=== PATIENT | female | born 1990 | race African-American/Black ===

== ENCOUNTER 2017-07-06 22:41 | Emergency (ER) | payer OTHER ==
[~2017-07-06] VITALS: Ht 167.6 cm; Wt 117.9 kg
--- NOTE | ~2017-07-06 | EKG ---
[place] [address] [address] [place] [address] ELECTROCARDIOGRAM REPORT Name: ASTER HILLIARD Room #: DEP Imelda#: [id number] Admission: 07/06/17 Attend Phys: Discharge: 07/07/17 Date of : [birth year] Report #: [id number] THIS REPORT FOR: //name// [facility] ED Test Date: 2017-07-06 Test Time: 23:10:31 Pat Name: ASTER HILLIARD Department: Room: Gender: F [employer] Consultant: Fannie PITT : 1990 Requested By: Dai Vail Order Number: [id number] MD: Salvatore Casillas Measurements Intervals [place] Rate: 82 P: 75 OK: 174 QRS: 35 QRSD: 90 T: 34 QT: 370 QTc: 432 Interpretive Statements Sinus rhythm Baseline wander in lead(s) V2 Compared to ECG 11/18/2015 13:47:21 No significant changes Electronically Signed On 07-07-2017 9:07:40 CDT by Salvatore Casillas [email or web address] <ELECTRONICALLY SIGNED> By: Salvatore Casillas MD, [facility] 07/07/17 0907 2310 09 Salvatore Casillas MD, FACC /EPI
[~2017-07-06 22:41] MED LIST: ERYTHROMYCIN E3.5 G1 OPHTHALMIC; IBUPROFEN 600600 M1 PO; NAPROSYN500 MG PO; NORCO 5-325 TA1 EACH PO; PROVENTIL HFA6.7 G1 INH; TESSALON PERLE100 MG PO; ZPAK PO
[2017-07-07 00:19] LABS: ABSOLUTE NEUTROPHILS 7.9 thou/uL (1.4-8.2); BASOPHILS 0.8 % (0.0-2.0); EOSINOPHILS 0.5 % (0.0-3.0); HEMATOCRIT 35.2 % (37.0-47.0); HEMOGLOBIN 11.2 gm/dL (12.0-15.0); LYMPHOCYTES 17.9 % (24.0-44.0); MCH 22.3 pg (26.0-34.0); MCV 69.8 fL (80.0-100.0); MONOCYTES 7.6 % (1.0-8.0); PLATELET COUNT 353 thou/uL (150-400); POLYS 73.2 % (36.0-66.0); RBC 5.03 mil/uL (4.20-5.00); RDW 15.2 % (10.5-14.5); WBC 10.9 thou/uL (4.0-11.0)
[2017-07-07 00:21] LABS: MANUAL DIFF NO
[2017-07-07 00:23] LABS: ANION GAP 11 mmol/L (7-16); BUN 11 mg/dL (7-18); CHLORIDE 100 mmol/L (98-107); CO2 27 mmol/L (21-32); CREATININE 0.7 mg/dL (0.6-1.0); GLUCOSE 129 mg/dL (74-106); POTASSIUM 4.2 mmol/L (3.5-5.1); SODIUM 138 mmol/L (136-145)
[2017-07-07 00:29] LABS: ALBUMIN 3.6 g/dL (3.4-5.0); ALKALINE PHOSPHATASE 101 U/L (46-116); DIRECT BILIRUBIN < 0.1 mg/dL (<0.1-0.3); SGOT 13 U/L (15-37); SGPT 17 U/L (30-65); TOTAL BILIRUBIN 0.3 mg/dL (<0.1-1.0)
[2017-07-07 00:50] LABS: URINE BILIRUBIN NEGATIVE (Negative); URINE BLOOD NEGATIVE (Negative); URINE COLOR YELLOW; URINE GLUCOSE-RANDOM* NEGATIVE (Negative); URINE KETONES NEGATIVE (Negative); URINE LEUKOCYTES-REFLEX NEGATIVE (Negative); URINE PROTEIN (DIPSTICK) NEGATIVE (Negative); URINE UROBILINOGEN 0.2 E.U./dl (0.2-1.0)
[2017-07-07 01:48] VITALS: BP 121/69
== END 2017-07-07 01:49 | disposition home or self-care (01) ==
LOC: ER 22:41
PROVIDERS: Emergency Medicine
DX: R55 Syncope and collapse (principal); R42 Dizziness and giddiness; G43.909 Migraine, unspecified, not intractable, without status migrainosus; E11.9 Type 2 diabetes mellitus without complications

== ENCOUNTER 2019-01-02 02:19 | Emergency (ER) | payer OTHER ==
[~2019-01-02] VITALS: Ht 167.6 cm; Wt 123.4 kg
[~2019-01-02 02:19] MED LIST changes: +PEPCID20 MG PO
[2019-01-02] MEDS ORDERED: GLUCOPHAGE1000 MG PO (02:57)
[2019-01-02] MEDS ORDERED: JANUVIA 50 MG T50 M1 PO (02:58)
[2019-01-02 02:59] LABS: ABSOLUTE NEUTROPHILS 5.9 thou/uL (1.4-8.2); BASOPHILS 0.8 % (0.0-2.0); EOSINOPHILS 2.1 % (0.0-3.0); HEMATOCRIT 35.2 % (37.0-47.0); HEMOGLOBIN 11.3 gm/dL (12.0-15.0); LYMPHOCYTES 38.6 % (24.0-44.0); MCH 21.8 pg (26.0-34.0); MONOCYTES 6.7 % (1.0-8.0); PLATELET COUNT 330 thou/uL (150-400); POLYS 51.8 % (36.0-66.0); RBC 5.18 mil/uL (4.20-5.00); RDW 14.4 % (10.5-14.5); WBC 11.3 thou/uL (4.0-11.0)
[2019-01-02] MEDS ORDERED: LANTUS SUBQ (02:59)
[2019-01-02] MEDS ORDERED: ANTACID PO (03:00)
[2019-01-02] MEDS ORDERED: SPRINTEC1 EACH PO (03:00)
[2019-01-02 03:08] LABS: ANION GAP 11 mmol/L (7-16); BUN 11 mg/dL (7-18); CALCIUM 9.6 mg/dL (8.5-10.1); CHLORIDE 99 mmol/L (98-107); CO2 28 mmol/L (21-32); CREATININE 0.7 mg/dL (0.6-1.0); GLUCOSE 156 mg/dL (74-106); SODIUM 138 mmol/L (136-145)
[2019-01-02 03:17] LABS: LIPASE 175 U/L (73-393); TROPONIN-I <0.06 ng/mL (<0.06)
--- NOTE | 2019-01-02 08:32 | EKG ---
[place] [address] [address] [place] [address] ELECTROCARDIOGRAM REPORT Name: ASTER HILLIARD Room #: [facility] Segura#: [id number] Admission: 01/02/19 Attend Phys: Discharge: Date of : [birth year] Report #: [id number] THIS REPORT FOR: //name// [facility] ED Test Date: 2019-01-02 Test Time: 02:36:11 Pat Name: ASTER HILLIARD Department: Room: Gender: F Vest Backer: Sharyn : 1990 Requested By: Edmar Lucas Order Number: [id number] MD: Salvatore Casillas Measurements Intervals [place] Rate: 90 P: 67 VT: 148 QRS: 31 QRSD: 87 T: 30 QT: 350 QTc: 429 Interpretive Statements Sinus rhythm Normal tracing Compared to ECG 07/06/2017 23:10:31 No significant changes Electronically Signed On 01-02-2019 8:32:39 HATCHERY ATTENDANT by Salvatore Casillas [email or web address] <ELECTRONICALLY SIGNED> By: Salvatore Casillas MD, [facility] 01/02/19 0832 0236 0236 Salvatore Casillas MD, FACC /EPI
[2019-01-02 10:50] VITALS: BP 134/84
[2019-01-02] MEDS ORDERED: PRILOSEC 20 MG20 MG PO (10:53)
== END 2019-01-02 11:20 | disposition home or self-care (01) ==
LOC: ER 02:19
PROVIDERS: Emergency Medicine
DX: S83.8X1A Sprain of other specified parts of right knee, initial encounter (principal); S63.591A Other specified sprain of right wrist, initial encounter; K21.0 Gastro-esophageal reflux disease with esophagitis; G43.909 Migraine, unspecified, not intractable, without status migrainosus; E11.9 Type 2 diabetes mellitus without complications; F17.210 Nicotine dependence, cigarettes, uncomplicated; Z79.4 Long term (current) use of insulin; W00.0XXA Fall on same level due to ice and snow, initial encounter; Y93.89 Activity, other specified; Y92.89 Other specified places as the place of occurrence of the external cause; Y99.8 Other external cause status

== ENCOUNTER 2021-06-09 05:54 | Emergency (ER) | payer OTHER ==
[~2021-06-09] VITALS: Ht 165.1 cm; Wt 109.3 kg
[~2021-06-09 05:54] MED LIST changes: +ANTACID PO; +GLUCOPHAGE1000 MG PO; +JANUVIA 50 MG T50 M1 PO; +LANTUS SUBQ; +PRILOSEC 20 MG20 MG PO; +SPRINTEC1 EACH PO
[2021-06-09 07:58] LABS: URINE BILIRUBIN NEGATIVE (Negative); URINE BLOOD TRACE (Negative); URINE CLARITY CLEAR; URINE COLOR YELLOW; URINE GLUCOSE-RANDOM* 3+ (Negative); URINE KETONES NEGATIVE (Negative); URINE NITRITE-REFLEX NEGATIVE (Negative); URINE PROTEIN (DIPSTICK) NEGATIVE (Negative); URINE UROBILINOGEN 0.2 E.U./dl (0.2-1.0)
[2021-06-09 08:00] LABS: URINE LEUKOCYTES-REFLEX 1+ (Negative)
[2021-06-09 08:09] LABS: CASTS None Seen /LPF (None Seen); CRYSTALS None Seen /LPF (None Seen); MUCUS 0-3 Light strn/LPF (None Seen); SQUAMOUS 0-3 Few /LPF (0-3); URINE RBC 3-10 Few /HPF (NONE SEEN); URINE WBC-REFLEX 6-15 Few /HPF (0-5); WBC CLUMPS Few (None Seen)
[2021-06-09 08:34] LABS: ABSOLUTE NEUTROPHILS 3.4 thou/uL (1.4-8.2); BASOPHILS 0.9 % (0.0-2.0); EOSINOPHILS 1.8 % (0.0-3.0); HEMATOCRIT 34.4 % (37.0-47.0); HEMOGLOBIN 11.3 gm/dL (12.0-15.0); LYMPHOCYTES 43.7 % (24.0-44.0); MCH 22.5 pg (26.0-34.0); MCHC 32.8 g/dL (28.0-37.0); MCV 68.5 fL (80.0-100.0); MONOCYTES 8.1 % (1.0-8.0); PLATELET COUNT 340 thou/uL (150-400); POLYS 45.5 % (36.0-66.0); RBC 5.02 mil/uL (4.20-5.00); RDW 14.4 % (10.5-14.5); WBC 7.4 thou/uL (4.0-11.0)
[2021-06-09 08:43] LABS: CALCIUM 8.8 mg/dL (8.5-10.1); CREATININE 0.7 mg/dL (0.6-1.0)
[2021-06-09 08:49] LABS: ALBUMIN 2.9 g/dL (3.4-5.0); TOTAL BILIRUBIN 0.3 mg/dL (0.2-1.0); TOTAL PROTEIN 7.4 g/dL (6.4-8.2)
[2021-06-09] MEDS ORDERED: ZOFRAN ODT4 MG PO (10:08)
[2021-06-09] MEDS ORDERED: MACROBID 100 M100 M1 PO (10:10)
[2021-06-09 10:14] VITALS: BP 126/68
== END 2021-06-09 10:14 | disposition home or self-care (01) ==
LOC: ER 05:54
PROVIDERS: Emergency Medicine
DX: K80.20 Calculus of gallbladder without cholecystitis without obstruction (principal); R10.11 Right upper quadrant pain; G43.909 Migraine, unspecified, not intractable, without status migrainosus; E11.9 Type 2 diabetes mellitus without complications; Z79.4 Long term (current) use of insulin; Z72.89 Other problems related to lifestyle